=== PATIENT | male | born 1990 | race Caucasian/White ===

== ENCOUNTER 2020-06-28 20:37 | Emergency (ER) | payer OTHER ==
[~2020-06-28] VITALS: Ht 170.2 cm; Wt 81.7 kg
[2020-06-28 20:42] VITALS: BP 127/84
[2020-06-28] MEDS ORDERED: NAPROSYN500 MG PO (21:31)
== END 2020-06-28 21:55 | disposition home or self-care (01) ==
LOC: ER 20:37
DX: R07.89 Other chest pain (principal); F17.210 Nicotine dependence, cigarettes, uncomplicated; V89.2XXA Person injured in unspecified motor-vehicle accident, traffic, initial encounter; Y93.89 Activity, other specified; Y92.488 Other paved roadways as the place of occurrence of the external cause; Y99.8 Other external cause status